=== PATIENT | female | born 1960 | race Caucasian/White ===

== ENCOUNTER → 2017-04-15 | Outpatient (CLI) | payer OTHER ==
[~2017-04-15] MED LIST: BENADRYL25 MG PO; CARISOPRODOL 3350 MG PO; CIPROFLOXACIN500 M1 PO; NORVASC5 MG PO; OMEPRAZOLE20 M2 PO; PHENERGAN12.5 MG PO; PROZAC10 MG PO; TRAMADOL 50 MG50 MG PO; ULTRAM 50MG TAB50 MG PO; XANAX1 MG PO; ZINC
== END ==
LOC: M.RAD 12:50
DX: Z12.31 Encounter for screening mammogram for malignant neoplasm of breast (principal); M53.3 Sacrococcygeal disorders, not elsewhere classified; M51.37 Other intervertebral disc degeneration, lumbosacral region; M54.16 Radiculopathy, lumbar region; M41.86 Other forms of scoliosis, lumbar region; M47.897 Other spondylosis, lumbosacral region

== ENCOUNTER → 2017-04-22 | Outpatient (CLI) | payer OTHER | LOC: M.RAD 04-16 11:42 | DX: N60.02 Solitary cyst of left breast (principal) ==

== ENCOUNTER 2017-11-07 13:21 | Emergency (ER) | payer OTHER ==
[~2017-11-07] VITALS: Ht 165.1 cm; Wt 77.1 kg
[~2017-11-07 13:21] MED LIST changes: -CARISOPRODOL 3350 MG PO; -NORVASC5 MG PO; -OMEPRAZOLE20 M2 PO; -PROZAC10 MG PO; -TRAMADOL 50 MG50 MG PO; -XANAX1 MG PO; -ZINC
[2017-11-07] MEDS ORDERED: NORVASC5 MG PO (13:33)
[2017-11-07] MEDS ORDERED: PROZAC10 MG PO (13:33)
[2017-11-07] MEDS ORDERED: OMEPRAZOLE20 M2 PO (13:34)
[2017-11-07] MEDS ORDERED: TRAMADOL 50 MG50 MG PO ×2 (13:34→13:37)
[2017-11-07] MEDS ORDERED: XANAX1 MG PO (13:35)
[2017-11-07] MEDS ORDERED: CARISOPRODOL 3350 MG PO (13:35)
[2017-11-07] MEDS ORDERED: ZINC (13:39)
[2017-11-07 14:20] LABS: ABSOLUTE EOSINOPHILS 0.2 thou/uL (0.0-0.7); ABSOLUTE LYMPHOCYTES 1.9 thou/uL (0.8-5.3); ABSOLUTE MONOCYTES 0.6 thou/uL (0.0-1.2); ABSOLUTE NEUTROPHILS 3.7 thou/uL (1.6-8.1); BASOPHILS 0.6 %; HEMATOCRIT 43.7 % (37.0-47.0); HEMOGLOBIN 14.6 gm/dL (12.0-15.0); MCH 30.8 pg (26.0-34.0); MCHC 33.5 g/dL (28.0-37.0); MONOCYTES 9.4 %; MPV 8.3 fl. (7.2-11.1); NUCLEATED RBCS 0 /100WBC; PLATELET COUNT* 286 thou/uL (150-400); RBC 4.75 mil/uL (4.20-5.00); RDW-CV 14.4 % (10.5-14.5); WBC 6.5 thou/uL (4.0-11.0)
[2017-11-07 14:25] LABS: CALCIUM 8.9 mg/dL (8.5-10.1); POTASSIUM 4.1 mmol/L (3.5-5.1)
[2017-11-07 14:29] LABS: APTT 29.4 Seconds (25.0-31.3); PROTIME 10.5 Seconds (9.20-11.50)
[2017-11-07 14:35] LABS: TOTAL BILIRUBIN 0.2 mg/dL (<0.1-1.0); TOTAL PROTEIN 7.7 g/dL (6.4-8.2)
[2017-11-07 15:59] VITALS: BP 143/75
== END 2017-11-07 16:00 | disposition home or self-care (01) ==
LOC: M.ERS 13:21
PROVIDERS: Nurse Practitioner Family
DX: S70.12XA Contusion of left thigh, initial encounter (principal); S00.31XA Abrasion of nose, initial encounter; G89.29 Other chronic pain; M54.2 Cervicalgia; M54.9 Dorsalgia, unspecified; F17.210 Nicotine dependence, cigarettes, uncomplicated; Z90.49 Acquired absence of other specified parts of digestive tract; Z90.710 Acquired absence of both cervix and uterus; Z88.6 Allergy status to analgesic agent; Z88.2 Allergy status to sulfonamides; Z87.442 Personal history of urinary calculi; W06.XXXA Fall from bed, initial encounter; Y93.89 Activity, other specified; Y92.89 Other specified places as the place of occurrence of the external cause; Y99.8 Other external cause status